=== PATIENT | female | born 1995 | race American Indian/Alaskan Native ===

== ENCOUNTER 2019-07-11 06:54 | Emergency (ER) | payer SELFPAY ==
[2019-07-11 08:46] LABS: HCG Qualitative,Urine Negative (Negative)
[2019-07-11 08:47] LABS: Bilirubin,Urine NEG (Negative); Blood,Urine NEG (Negative); Color,Urine Yellow (Yellow); Mucus,Urine FEW /HPF; Protein,Urine <15 mg/dL mg/dL (Negative); Urobilinogen,Urine < 2.0 mg/dL (<2.0)
[2019-07-11] MEDS ORDERED: ACETAMINOPHEN W/CODEINE 300-30 MG TAB PO ONE (09:39)
[2019-07-11] MEDS ORDERED: LIDOCAINE-MPF (1%) 10 MG/1 ML VIAL 5 ML INFILTRATI ONE (09:39)
--- NOTE | 2019-07-11 10:03 | Emergency Department Report ---
ED Female HPI - General Chief complaint: Skin/Abscess/Foreign Body Stated complaint: CYST Time Seen by Provider: 07/11/19 09:30 Source: patient Mode of arrival: Ambulatory Limitations: No Limitations - History of Present Illness Initial comments: Patient is a 23-year-old female presents emergency room with complaints of a Bartholin's cyst to the left labia that began yesterday. She states that she has intermittently had it for the last 3 years. She states she last had it drained a month ago. She denies any drainage, fever, chills, vomiting, urinary symptoms, abdominal pain, fever, vaginal discharge. She states that she has not seen an INVESTMENT FUND MANAGER for this complaint. She denies any past medical history is. She states she has an allergy to sulfa. Last menstrual cycle 06/20/2019. - Related Data Previous Rx's Medication Instructions Recorded Last Taken Type Acetaminophen/Codeine [Tylenol 1 tab PO Q6H PRN #7 tab 07/11/19 Unknown Rx /Codeine # 3 tab] Allergies Allergy/AdvReac Type Severity Reaction Status Date / Time Sulfa (Sulfonamide Allergy Unknown Verified 07/11/19 07:27 Antibiotics) ED Review of Systems ROS: Stated complaint: CYST Other details as noted in HPI Comment: All other systems reviewed and negative ED Past Medical Hx - Past Medical History Previous Medical History?: Yes Additional medical history: Bartholin Cyst x 5 this year - Surgical History Past Surgical History?: Yes Additional Surgical History: I&D Bartholin Cyst x 5 this year - Social History Smoking Status: Never Smoker - Medications Home Medications: Home Medications Medication Instructions Recorded Confirmed Last Taken Type Acetaminophen/Codeine [Tylenol 1 tab PO Q6H PRN #7 tab 07/11/19 Unknown Rx /Codeine # 3 tab] ED Physical Exam - General Limitations: No Limitations General appearance: alert, in no apparent distress - Head Head exam: Present: atraumatic, normocephalic - Eye Eye exam: Present: normal appearance - ENT ENT exam: Present: mucous membranes moist - Respiratory Respiratory exam: Present: normal lung sounds bilaterally. Absent: respiratory distress, wheezes, rales, rhonchi, stridor, chest wall tenderness, accessory muscle use, decreased breath sounds, prolonged expiratory - Cardiovascular Cardiovascular Exam: Present: regular rate, normal rhythm, normal heart sounds. Absent: systolic murmur, diastolic murmur, rubs, gallop - GI/Abdominal GI/Abdominal exam: Present: soft, normal bowel sounds. Absent: distended, tenderness, guarding, rebound, rigid - External exam: Present: swelling (3 cm area of edema present to the inner left labia, no drainage, no necrosis), other (access rn: tara zamora, EMT student ) - Neurological Exam Neurological exam: Present: alert, oriented X3 - Psychiatric Psychiatric exam: Present: normal affect, normal mood - Skin Skin exam: Present: warm, dry, intact ED Course Vital Signs 07/11/19 07/11/19 07:31 10:36 Temperature 98.2 F 98.2 F Pulse Rate 94 H Respiratory 16 Rate Blood Pressure 124/77 [Right] O2 Sat by Pulse 98 Oximetry - I & D Left Vagina Type of Procedure: Simple Site: left labia Blade Size: 11 I & D Procedure: betadine prep, sterile drapes applied, sterile dressing applied Progress: Cleaned with Betadine, 3 mL of 1% lidocaine without epinephrine used as anesthetic, 11 blade used to make 0.3 cm incision, copious amounts of purulent drainage expressed, irrigated with saline, patient would not allow to extend incision in order to place packing, incision was too small for packing to be placed, advised patient that this means it could return, patient verbalized understanding and did not want to extend the incision or receive packing, leann fernandez tolerated well, no complications, bleeding controlled ED Medical Decision Making - Medical Decision Making Patient is a 23-year-old female presents emergency room with complaints of a Bartholin's cyst to the left labia that began yesterday. She states that she has intermittently had it for the last 3 years. She states she last had it dr garcia a month ago. She denies any drainage, fever, chills, vomiting, urinary symptoms, abdominal pain, fever, vaginal discharge. She states that she has not seen an INVESTMENT FUND MANAGER for this complaint. She denies any past medical history is. She states she has an allergy to sulfa. Last menstrual cycle 06/20/2019. vitals are normal. on exam: 3 cm area of edema present to the inner left labia, no drainage, no necrosis, access rn: tara zamora, EMT student. Incision and drainage performed per procedure note, patient would not allow to extend incision in order to place packing, incision was too small for packing to be placed, advised patient that this means it could return, patient verbalized understanding and did not want to extend the incision or receive packing. please keep area clean, dry, covered. May use soap and water to wash and immediately dry. No hot tub, pool, soaking in water. Follow up with an INVESTMENT FUND MANAGER in the next 2-3 days for further evaluation. Return to the emergency room for any new or worsening symptoms. upon discharged pt requested prescription for pain medications, advised to take as prescribed as needed for severe pain, do not drive or operate heavy machinery while taking. Critical care attestation.: If time is entered above; I have spent that time in minutes in the direct care of this critically ill patient, excluding procedure time. ED Disposition Clinical Impression: Bartholin's cyst Disposition: TO HOME OR SELFCARE Is pt being admited?: No Does the pt Need Aspirin: No Condition: Stable Instructions: Bartholin Cyst (ED), Incision and Drainage (ED) Additional Instructions: please keep area clean, dry, covered. May use soap and water to wash and immediately dry. No hot tub, pool, soaking in water. Follow up with an INVESTMENT FUND MANAGER in the next 2-3 days for further evaluation. Return to the emergency room for any new or worsening symptoms. Prescriptions: Acetaminophen/Codeine [Tylenol /Codeine # 3 tab] 1 tab PO Q6H PRN #7 tab PRN Reason: Pain , Severe (7-10) Referrals: [facility] [Outside] - 2-3 Days [facility] [Outside] - 2-3 Days [facility] [Provider Group] - 2-3 Days Time of Disposition: 10:26 Print Language: CZECH
[2019-07-11 10:37] VITALS: BP 124/77
== END 2019-07-11 10:38 | disposition home or self-care (01) ==
LOC: ED 06:54
DX: N75.0 Cyst of Bartholin's gland (principal); Z79.899 Other long term (current) drug therapy; Z88.2 Allergy status to sulfonamides
CPT/HCPCS: 81001; 81025